=== PATIENT | male | born 1975 | race African-American/Black ===

== ENCOUNTER → 2016-10-07 | Day surgery (SDC) | payer OTHER ==
[2016-10-06 15:52] LABS: PROTHROMBIN TIME 12.8 SECONDS (11.7-14.0); PTT 28.5 SECONDS (23.2-31.4)
[2016-10-06 16:46] LABS: BASOPHIL 0.6 % (0-2); EOSINOPHIL 1.3 % (0-5); HCT 48.9 % (42.0-52.0); HGB 18.5 g/dl (13.2-18.0); LYMPHOCYTE 31.9 % (15-48); MCH 29.5 pg (25.0-31.0); MCHC 37.8 g/dL (32.0-36.0); MCV 77.9 fL (78.0-100.0); MONOCYTE 5.5 % (0-12); MPV 10.2 fL (6.0-9.5); NEUTROPHIL 60.7 % (41-80); PLT 156 K/uL (150-400); RBC 6.28 M/uL (4.70-6.00); RDW 14.5 % (11.5-14.0); WBC 5.5 K/uL (4.0-10.5)
== END | disposition home or self-care (01) ==
LOC: FAS 12:48
PROVIDERS: Oral & Maxillofacial Surgery
DX: K02.9 Dental caries, unspecified (principal); E11.9 Type 2 diabetes mellitus without complications; F20.9 Schizophrenia, unspecified; Z79.899 Other long term (current) drug therapy; F17.200 Nicotine dependence, unspecified, uncomplicated
CPT/HCPCS: 36415; 71020; 85025; 85610; 85730; 93005; J1170; J2405; J2704; J2710; J3010

== ENCOUNTER 2021-10-09 17:42 | Emergency (ER) | payer OTHER ==
[2021-10-09] MEDS ORDERED: MOTRIN600 MG PO (20:07)
== END 2021-10-09 20:33 | disposition home or self-care (01) ==
LOC: FER 17:42
DX: M25.562 Pain in left knee (principal); F17.210 Nicotine dependence, cigarettes, uncomplicated
CPT/HCPCS: 73560; 99283